=== PATIENT | male | born 1985 | race Two or more races ===

== ENCOUNTER 2022-04-12 15:34 | Emergency (ER) | payer MEDICARE, OTHER ==
[~2022-04-12] VITALS: Ht 162.6 cm; Wt 104.3 kg
--- NOTE | 2022-04-12 16:44 | NUR ---
VERBALIZED UNDERSTANDING OF [facility],REQUESTED TRANSPORT BACK TO HIS [facility]
--- NOTE | 2022-04-12 16:48 | NUR ---
[facility] CALLED FOR TRANSPORT ETA 45 MINS.
--- NOTE | 2022-04-12 17:26 | NUR ---
DESTINATION ADDRESS: [place] [id number] [facility] [id number]
--- NOTE | 2022-04-12 17:52 | NUR ---
Discharged to previous living condition ( Rehab facility/house) picked up by [employer] [facility] given- Endorsed to SALEEM Mena
[2022-04-12 18:02] VITALS: BP 113/76
== END 2022-04-12 18:02 | disposition home or self-care (01) ==
LOC: ER 16:35
DX: Z00.00 Encounter for general adult medical examination without abnormal findings (principal); I10 Essential (primary) hypertension; I25.2 Old myocardial infarction; E78.00 Pure hypercholesterolemia, unspecified; J45.909 Unspecified asthma, uncomplicated; E11.9 Type 2 diabetes mellitus without complications; Z88.0 Allergy status to penicillin; Z59.00 Homelessness unspecified; Z79.899 Other long term (current) drug therapy

== ENCOUNTER 2022-04-14 06:43 | Emergency (ER) | payer MEDICARE, OTHER ==
[~2022-04-14] VITALS: Ht 162.6 cm; Wt 104.3 kg
[2022-04-14] MEDS ORDERED: ACETAMINOPHEN ES 500 MG TABLET PO ONE (07:30)
[2022-04-14] MEDS ORDERED: ACETAMINOPHEN ES 500 MG TABLET ONE (07:54)
[2022-04-14] MEDS ORDERED: CLIN150C16 PO (10:41)
--- NOTE | 2022-04-14 10:49 | NUR ---
Patient discharged to home in stable condition. Written and verbal after care instructions given. Patient verbalizes understanding of instruction.
[2022-04-14 10:52] VITALS: BP 134/70
== END 2022-04-14 10:52 | disposition home or self-care (01) ==
LOC: ER 06:49
DX: S91.111A Laceration without foreign body of right great toe without damage to nail, initial encounter (principal); I10 Essential (primary) hypertension; I25.2 Old myocardial infarction; E78.00 Pure hypercholesterolemia, unspecified; J45.909 Unspecified asthma, uncomplicated; E11.9 Type 2 diabetes mellitus without complications; Z88.0 Allergy status to penicillin; Z59.00 Homelessness unspecified; Z79.899 Other long term (current) drug therapy; W45.8XXA Other foreign body or object entering through skin, initial encounter; Y93.89 Activity, other specified; Y92.89 Other specified places as the place of occurrence of the external cause; Y99.8 Other external cause status
CPT/HCPCS: 73630-TC; 82962-TC

== ENCOUNTER 2023-05-11 17:04 | Inpatient (IN) | payer MEDICARE, OTHER ==
[~2023-05-11] VITALS: Ht 162.6 cm; Wt 87.3 kg
[~2023-05-11 17:04] MED LIST: CLIN150C16 PO
[2023-05-11 17:41] LABS: BASOPHILS # (AUTO) 0.1 K/uL (0.0-0.2); BASOPHILS % (AUTO) 1.1 % (0.0-2.0); EOSINOPHILS # (AUTO) 0.1 K/uL (0.0-0.7); EOSINOPHILS % (AUTO) 0.7 % (0.0-6.0); HEMATOCRIT 47 % (39-51); HEMOGLOBIN 15.1 g/dL (13.5-17.5); LYMPHOCYTES # (AUTO) 3.8 K/uL (0.8-4.8); LYMPHOCYTES % (AUTO) 36.3 % (20.0-44.0); MEAN CORPUSCULAR HEMOGLOBIN 24 PG (26.0-33.0); MEAN CORPUSCULAR HGB CONC 32 g/dl (31.0-36.0); MEAN CORPUSCULAR VOLUME 75 fL (80-96); MONOCYTES # (AUTO) 0.6 K/uL (0.1-1.30); MONOCYTES % (AUTO) 5.6 % (2.0-12.0); NEUTROPHILS # (AUTO) 5.9 K/uL (1.8-8.9); NEUTROPHILS % (AUTO) 56.3 % (43.0-81.0); PLATELET COUNT (AUTO) 210 K/uL (150-450); RED BLOOD CELL COUNT(AUTO) 6.31 MIL/uL (4.5-6.0); RED CELL DISTRIBUTION WIDTH 17.7 % (11.5-15.0); WHITE BLOOD COUNT (AUTO) 10.4 K/uL (4.3-11.0)
[2023-05-11 17:53] LABS: CALCIUM, SERUM 9.8 mg/dL (8.5-10.1); CARBON DIOXIDE 27 mmol/L (21-32); CHLORIDE 100 mmol/L (98-107); CREATININE 0.6 mg/dL (0.6-1.3); GLUCOSE 258 mg/dL (74-106); POTASSIUM 4.2 mmol/L (3.5-5.1); SODIUM SERUM 136 mmol/L (136-145); UREA NITROGEN, BLOOD 12 mg/dL (7-18)
[2023-05-11 17:59] LABS: INR 0.99 (0.91-1.10); PARTIAL THROMBOPLASTIN TIME 32.2 SEC (24.3-34.3); PROTHROMBIN TIME 10.5 SECS (9.2-11.1)
[2023-05-11] MEDS ORDERED: FAMO-131 PO (18:12)
[2023-05-11] MEDS ORDERED: METO25TA20 PO (18:12)
[2023-05-11] MEDS ORDERED: METF-442 PO (18:12)
[2023-05-11] MEDS ORDERED: INSU500I SQ (18:12)
[2023-05-11] MEDS ORDERED: FLUT12AE5 IH (18:12)
[2023-05-11] MEDS ORDERED: SITA100T PO (18:12)
[2023-05-11] MEDS ORDERED: ALBU8.5H8 IH (18:12)
[2023-05-11] MEDS ORDERED: ESCI5TAB PO (18:12)
[2023-05-11] MEDS ORDERED: GABA-532 PO (18:12)
[2023-05-11] MEDS ORDERED: PALI234D IM (18:12)
[2023-05-11] MEDS ORDERED: CLOT15CR27 TP (18:12)
[2023-05-11] MEDS ORDERED: ATOR40TA PO (18:12)
[2023-05-11] MEDS ORDERED: BLOO-668 IN (18:12)
[2023-05-11] MEDS ORDERED: CETI10TA14 PO (18:12)
[2023-05-11] MEDS ORDERED: LURA60TA3 PO (18:12)
[2023-05-11] MEDS ORDERED: FLUT16SP16 BNOSTRILS (18:12)
[2023-05-11] MEDS ORDERED: DULO30CA2 PO (18:12)
[2023-05-11 18:50] LABS: BAND % (MANUAL) 1 % (0.0-5.0); EOSINOPHILS % (MANUAL) 1 % (0-4); LYMPHOCYTES % (MANUAL) 34 % (16-48); MONOCYTES % (MANUAL) 6 % (0-11.0); NEUTROPHILS % (MANUAL) 58 (42-76)
[2023-05-11 18:51] LABS: PLATELET ESTIMATE ADEQUATE
[2023-05-11 18:54] LABS: APPEARANCE,URINE CLEAR (CLEAR); BILIRUBIN,URINE NEGATIVE (NEGATIVE); BLOOD, URINE NEGATIVE Ery/uL (NEGATIVE); COLOR,URINE YELLOW (YELLOW); KETONES,URINE TRACE mg/dL (NEGATIVE); LEUKOCYTE ESTERASE ,URINE NEGATIVE (NEGATIVE); NITRITE, URINE NEGATIVE (NEGATIVE); PH,URINE 5.5 (5.0-8.0); PROTEIN,URINE TRACE mg/dl (NEGATIVE); UGLUCOSE 3+ mg/dL (NEGATIVE); UROBILINOGEN,URINE 0.2 EU/dL (0.2)
[2023-05-11 19:31] LABS: RBC,URINE NONE SEEN /HPF (0-2); WBC,URINE 0-2 /HPF (0-3)
[2023-05-11 19:32] LABS: ADD URINE CULTURE NO; BACTERIA,URINE None seen /HPF (None Seen); MUCUS,URINE Few /LPF (None Seen); SPERM,URINE Rare /HPF (None Seen); SQUAMOUS EPITHELIAL CELL,UR None Seen /HPF (None Seen)
[2023-05-11 20:25] VITALS: BP 112/71; TEMP 98.4; O2SAT 98
[2023-05-11] MEDS ORDERED: ONDANSETRON HCL/PF 4 MG/2 ML VIAL IVP PRN (21:30)
[2023-05-11] MEDS ORDERED: DEXTROSE 50%-WATER 50 ML DISP.SYRIN IV PRN (21:30)
[2023-05-11] MEDS ORDERED: MAGNESIUM HYDROXIDE 30 ML UDC PO PRN (21:30)
[2023-05-11] MEDS ORDERED: ACETAMINOPHEN 325 MG TABLET PO PRN (21:30)
[2023-05-11] MEDS ORDERED: MAG HYDROX/AL HYDROX/SIMETH 30 ML UDC PO PRN (21:30)
[2023-05-11] MEDS: BLOOD SUGAR DIAGNOSTIC 1 EACH STRIP IN SCH (21:53)
[2023-05-11] MEDS: ENOXAPARIN SODIUM 40 MG/0.4 ML DISP.SYRIN SQ SCH (22:00)
[2023-05-11] MEDS: INSULIN REGULAR, HUMAN 100 UNIT/ML 3 ML VIAL SQ PRN (22:35)
[2023-05-12 04:00] VITALS: BP 94/67; TEMP 98.1; O2SAT 98
[2023-05-12] MEDS: INSULIN REGULAR, HUMAN 100 UNIT/ML 3 ML VIAL SQ PRN ×4 (06:54→21:53)
[2023-05-12] MEDS: BLOOD SUGAR DIAGNOSTIC 1 EACH STRIP IN SCH ×4 (06:55→21:34)
[2023-05-12 06:59] LABS: BASOPHILS # (AUTO) 0.1 K/uL (0.0-0.2); EOSINOPHILS # (AUTO) 0.1 K/uL (0.0-0.7); EOSINOPHILS % (AUTO) 1.5 % (0.0-6.0); HEMATOCRIT 42 % (39-51); HEMOGLOBIN 13.9 g/dL (13.5-17.5); LYMPHOCYTES # (AUTO) 4.5 K/uL (0.8-4.8); LYMPHOCYTES % (AUTO) 49.4 % (20.0-44.0); MEAN CORPUSCULAR HEMOGLOBIN 25 PG (26.0-33.0); MEAN CORPUSCULAR HGB CONC 33 g/dl (31.0-36.0); MEAN CORPUSCULAR VOLUME 75 fL (80-96); MONOCYTES # (AUTO) 0.6 K/uL (0.1-1.30); MONOCYTES % (AUTO) 6.6 % (2.0-12.0); NEUTROPHILS # (AUTO) 3.8 K/uL (1.8-8.9); NEUTROPHILS % (AUTO) 41.5 % (43.0-81.0); PLATELET COUNT (AUTO) 203 K/uL (150-450); RED BLOOD CELL COUNT(AUTO) 5.64 MIL/uL (4.5-6.0); RED CELL DISTRIBUTION WIDTH 17.7 % (11.5-15.0); WHITE BLOOD COUNT (AUTO) 9.1 K/uL (4.3-11.0)
[2023-05-12 07:22] LABS: CREATININE 0.7 mg/dL (0.6-1.3); MAGNESIUM 1.7 mg/dL (1.8-2.4); POTASSIUM 3.9 mmol/L (3.5-5.1)
[2023-05-12 09:03] VITALS: BP 100/67; TEMP 98.3; O2SAT 95
[2023-05-12] MEDS ORDERED: MAGNESIUM OXIDE 400 MG TABLET PO ONE (10:30)
[2023-05-12] MEDS ORDERED: GABAPENTIN 100 MG CAPSULE PO PRN (10:30)
[2023-05-12] MEDS ORDERED: LURASIDONE HCL 120 MG PO SCH (10:30)
[2023-05-12] MEDS: METOPROLOL TARTRATE 25 MG TABLET PO SCH ×2 (10:30→16:34)
[2023-05-12] MEDS ORDERED: ALBUTEROL FS 2.5 MG/3 ML VIAL.NEB NEB PRN (10:30)
[2023-05-12] MEDS: METFORMIN 500 MG TABLET PO SCH ×2 (10:42→16:34)
[2023-05-12] MEDS: FAMOTIDINE (20 MG) 20 MG TABLET PO SCH (10:42)
[2023-05-12] MEDS: ESCITALOPRAM OXALATE (10 MG) 10 MG TABLET PO SCH (10:42)
[2023-05-12] MEDS: ATORVASTATIN 40 MG TABLET PO SCH (10:42)
[2023-05-12] MEDS: DULOXETINE HCL 30 MG CAPSULE.DR PO SCH (10:42)
[2023-05-12] MEDS: GABAPENTIN 100 MG CAPSULE PO SCH ×3 (10:43→16:34)
[2023-05-12] MEDS: ASPIRIN 81 MG TAB.CHEW PO SCH (13:13)
[2023-05-12 13:19] LABS: THYROID STIMULATING HORMONE 2.298 uIU/mL (0.358-3.74)
[2023-05-12 15:10] VITALS: BP 118/75; TEMP 98.3; O2SAT 97
[2023-05-12 16:00] VITALS: BP 126/75; TEMP 98; O2SAT 99
[2023-05-12] MEDS ORDERED: BUDESONIDE RESPULE INH 0.5 MG/2 ML AMPUL.NEB IH SCH (17:00)
[2023-05-12 20:00] VITALS: BP 96/59; TEMP 97.9; O2SAT 95; O2SAT 98
[2023-05-12] MEDS: CLOPIDOGREL BISULFATE 75 MG TABLET PO SCH (20:43)
[2023-05-12] MEDS: FLUTICASONE PROPIONATE 16 GM BOTTLE NS SCH ×2 (21:00→21:17)
[2023-05-12] MEDS: ENOXAPARIN SODIUM 40 MG/0.4 ML DISP.SYRIN SQ SCH (21:12)
[2023-05-12] MEDS ORDERED: cetrizine 10 MG TABLET PO SCH (22:00)
[2023-05-13] VITALS: BP 114/87; TEMP 97.3; O2SAT 96
[2023-05-13] MEDS: BLOOD SUGAR DIAGNOSTIC 1 EACH STRIP IN SCH ×2 (07:05→11:29)
[2023-05-13] MEDS: INSULIN REGULAR, HUMAN 100 UNIT/ML 3 ML VIAL SQ PRN ×2 (07:08→11:31)
[2023-05-13 08:00] VITALS: BP 106/74; TEMP 97.7; O2SAT 96
[2023-05-13] MEDS: FAMOTIDINE (20 MG) 20 MG TABLET PO SCH (08:56)
[2023-05-13] MEDS: DULOXETINE HCL 30 MG CAPSULE.DR PO SCH (08:56)
[2023-05-13] MEDS: CLOPIDOGREL BISULFATE 75 MG TABLET PO SCH (08:56)
[2023-05-13] MEDS: ASPIRIN 81 MG TAB.CHEW PO SCH (08:56)
[2023-05-13] MEDS: METFORMIN 500 MG TABLET PO SCH (08:56)
[2023-05-13] MEDS: GABAPENTIN 100 MG CAPSULE PO SCH (08:56)
[2023-05-13] MEDS: ATORVASTATIN 40 MG TABLET PO SCH (08:56)
[2023-05-13 08:57] VITALS: BP 106/74
[2023-05-13] MEDS: ESCITALOPRAM OXALATE (10 MG) 10 MG TABLET PO SCH (08:57)
[2023-05-13] MEDS: METOPROLOL TARTRATE 25 MG TABLET PO SCH (08:57)
[2023-05-13] MEDS ORDERED: LINAGLIPTIN 5 MG TABLET PO SCH (09:00)
[2023-05-13] MEDS: FLUTICASONE PROPIONATE 16 GM BOTTLE NS SCH (09:01)
[2023-05-13] MEDS ORDERED: IV NS 0.9% 250 ML IV ONE (09:49)
[2023-05-13] MEDS ORDERED: IOHEXOL-350 100 ML VIAL IV ONE (09:49)
[2023-05-13] MEDS ORDERED: MAGNESIUM OXIDE 400 MG TABLET PO ONE (10:00)
[2023-05-13] MEDS ORDERED: ATOR40TA PO (20:00)
[2023-05-13] MEDS ORDERED: CLOP75TA15 PO (20:00)
[2023-05-13] MEDS ORDERED: ASPI-1169 PO (20:00)
[2023-05-13] MEDS ORDERED: GABA-532 PO (20:00)
[2023-05-14 01:07] LABS: FOLIC ACID 11.4 ng/mL (>3.0)
== END 2023-05-13 13:35 | disposition home or self-care (01) | DRG 69 ==
LOC: ER 17:10 → TELE 19:52
PROVIDERS: ADMIT Nurse Practitioner Acute Care; ATTEND Nurse Practitioner Acute Care
DX: G45.9 Transient cerebral ischemic attack, unspecified (principal); D68.59 Other primary thrombophilia; Z59.00 Homelessness unspecified; G81.91 Hemiplegia, unspecified affecting right dominant side; E11.65 Type 2 diabetes mellitus with hyperglycemia; I10 Essential (primary) hypertension; R04.0 Epistaxis; E11.42 Type 2 diabetes mellitus with diabetic polyneuropathy; I25.2 Old myocardial infarction; J45.909 Unspecified asthma, uncomplicated; E78.00 Pure hypercholesterolemia, unspecified; Z88.0 Allergy status to penicillin; Z79.84 Long term (current) use of oral hypoglycemic drugs; Z79.51 Long term (current) use of inhaled steroids; Z79.4 Long term (current) use of insulin; Z79.899 Other long term (current) drug therapy; E66.01 Morbid (severe) obesity due to excess calories; Z79.82 Long term (current) use of aspirin; Z86.73 Personal history of transient ischemic attack (TIA), and cerebral infarction without residual deficits; Z91.199 Patient's noncompliance with other medical treatment and regimen due to unspecified reason; R20.0 Anesthesia of skin; R29.703 NIHSS score 3
CPT/HCPCS: 36415; 70450-TC; 70496-TC; 70498-TC; 80048-TC; 80061-TC; 81001; 82607-TC; 82962-TC; 83735-TC; 83921; 84100-TC; 84439-TC; 84443-TC; 84484-TC; 85025-TC; 85730-TC; 92526; 92611-TC; 97110-TC; 97530-TC; G0378; J1650; J1815; J7050; Q9967